=== PATIENT | male | born 1990 | race Caucasian/White ===

== ENCOUNTER 2017-07-12 10:13 | Emergency (ER) | payer BC ==
[~2017-07-12] VITALS: Ht 172.7 cm; Wt 78.9 kg
[2017-07-12 10:25] VITALS: TEMP 36.6; Ht 172.7 cm; Wt 78.9 kg
[2017-07-12] MEDS ORDERED: IBUP-1050 PO (11:13)
[2017-07-12] MEDS ORDERED: OPTIRAY 320 IV PRN (11:15)
[2017-07-12] MEDS ORDERED: SODIUM CHLORIDE 0.9% 1000ML 1,000 ML IV STA (11:21)
[2017-07-12 11:31] LABS: ISTAT CREATININE 1.6 mg/dl (0.6-1.3); ISTAT IONIZED CALCIUM 1.19 mmol/l (1.12-1.32); ISTAT POTASSIUM 3.8 mEq/L (3.3-5.0)
[2017-07-12 11:46] LABS: BASO % 0.8 %; BASO ABS # 0.03 K/uL (0-0.2); EOS % 0.5 %; EOS ABS # 0.02 K/uL (0-0.5); HEMATOCRIT 42.8 % (42-52); HEMOGLOBIN 15.1 g/dL (14.0-18.0); LYMPH % 44.9 %; LYMPH ABS # 1.67 K/uL (1.2-3.4); MEAN CELL VOLUME 92.4 fL (80-100); MEAN CORPUSCULAR HEMOGLOBIN 32.6 pg (25-34); MEAN CORPUSCULAR HGB CONC 35.3 g/dl (32-36); MEAN PLATELET VOLUME 11.3 fL (7.4-10.4); MONO % 9.7 %; MONO ABS # 0.36 K/uL (0.11-0.59); NEUT % 44.1 %; NEUT ABS # 1.64 K/uL (1.4-6.5); PLATELET COUNT 225 K/uL (130-400); RED CELL DISTRIBUTION WIDTH CV 13.1 % (11.5-14.5); RED CELL DISTRIBUTION WIDTH SD 44.3 fL (36.4-46.3); WHITE BLOOD COUNT 3.72 K/uL (4.8-10.8)
[2017-07-12 12:05] LABS: CALCIUM 9.4 mg/dl (8.5-10.1); CREATININE 1.6 mg/dl (0.60-1.40); POTASSIUM 3.7 mmol/L (3.5-5.1)
--- NOTE | 2017-07-12 12:29 | DIAGNOSTIC IMAGING REPORT ---
CT SCAN OF THE ABDOMEN AND PELVIS WITH IV CONTRAST CLINICAL HISTORY: Left upper quadrant abdominal pain. Recent injury. COMPARISON STUDY: No priors. TECHNIQUE: Following the IV administration of 118 cc of Optiray 320, CT scan of the abdomen and pelvis is performed from the lung bases to the proximal femora. Images are reviewed in the axial, sagittal, and coronal planes. IV contrast was administered without complication. A dose lowering technique was utilized adhering to the principles of ALARA. CT DOSE: 332.79 mGy.cm FINDINGS: Lung bases: The heart is normal in size and without pericardial effusion. The lung bases are clear. Liver: The contrast-enhanced liver is normal in size, contour, and attenuation. Focal fatty infiltration is noted adjacent to falciform ligament. There is no intrahepatic biliary ductal dilatation. The hepatic veins and portal veins are patent. There are at least 3 subcentimeter hepatic hypodensities. These likely represent tiny cysts or hemangiomas but are incompletely characterized. Gallbladder: Unremarkable. Spleen: Normal in size and attenuation. Pancreas: Unremarkable. Adrenal glands: Unremarkable. Kidneys: The contrast enhanced kidneys are normal in size and without hydronephrosis. The kidneys enhance symmetrically. Abdominal vasculature: The abdominal aorta is normal in course and caliber. Bowel: The small bowel and colon are normal in course and caliber. The appendix is not identified and reported surgically absent. Peritoneum: There is no intraperitoneal free air or abdominal ascites. There is a small fat-containing umbilical hernia. Lymphadenopathy: None. Pelvic viscera: The bladder, prostate, and seminal vesicles are normal as visualized. Skeletal structures: No lytic or blastic lesions are seen. IMPRESSION: 1. There is no evidence of solid organ injury in the abdomen or pelvis. 2. No acute infectious or inflammatory findings are seen in the abdomen or pelvis. 3. There are 3 subcentimeter hepatic hypodensities. These are incompletely characterized, but likely represent tiny cysts versus hemangiomas. These are of low suspicion, and if further assessment is desired a nonemergent ultrasound of the liver should be considered. Electronically signed by: Richard Matthew M.D. 07/12/2017 12:28 PM Dictated Date/Time: 07/12/2017 12:23 PM
--- NOTE | 2017-07-12 12:41 | EMERGENCY ROOM VISIT NOTE ---
History First contact with patient: 10:29 Chief Complaint: ABDOMINAL PAIN Stated Complaint: PAIN UPPER LEFT AB & BACK Nursing Triage Summary: Pt presents with pain in left flank around to left abd. Pt states, "I was playing basketball on and was hit in the back with a knee. I didn't really pay a lot of attention to it and by yesterday it was pretty significant." Denies dark urine or hematuria. History of Present Illness The patient is a 27 year old male who presents to the Emergency Room with complaints of left flank pain. The patient states that he was playing basketball yesterday and was hit in the back with a knee. He states that his pain worsened yesterday and now rates his discomfort an 8/10. The pain is located in the left flank and the left upper abdomen. He states that the left back does not hurt worse to press it, however he does have pain with pressing on the left upper abdomen. He denies any blood in his urine. He denies nausea or vomiting. He states the pain is an aching feeling and is worsened with certain movements. Review of Systems A complete 10 point review of systems was reviewed with the patient with pertinent positives and negatives as per history of present illness. All else were negative. Social History Smoking Status: Never Smoker Occupation Status: employed Current/Historical Medications Scheduled Ibuprofen (Advil), 200 MG PO UD Physical Exam Vital Signs Date Time Temp Pulse Resp B/P (MAP) Pulse Ox O2 Delivery O2 Flow Rate FiO2 07/12/17 13:02 60 18 114/64 97 07/12/17 12:05 61 18 116/58 99 Nasal Cannula 07/12/17 10:25 36.6 81 18 141/70 98 Room Air Physical Exam VITALS: Vitals are noted on the nurse's note and reviewed by myself. Vital signs stable. GENERAL: This is a 27-year-old male, in no acute distress, nondiaphoretic, well- developed well-nourished. SKIN: The skin was without rashes, erythema, edema, or bruising. HEART: Regular rate and rhythm without murmurs gallops or rubs. LUNGS: Clear to auscultation bilaterally without wheezes, rales or rhonchi. ABDOMEN: Positive bowel sounds x 4. Soft, mild tenderness to palpation in the left upper quadrant and left flank. No guarding or rebound tenderness. MUSCULOSKELETAL: No tenderness to the thoracic or lumbar spine. No tenderness of the ribs. NEURO: Patient was alert and oriented to person place and time. Medical Decision & Procedures ER Provider Diagnostic Interpretation: CT SCAN OF THE ABDOMEN AND PELVIS WITH IV CONTRAST IMPRESSION: 1. There is no evidence of solid organ injury in the abdomen or pelvis. 2. No acute infectious or inflammatory findings are seen in the abdomen or pelvis. 3. There are 3 subcentimeter hepatic hypodensities. These are incompletely characterized, but likely represent tiny cysts versus hemangiomas. These are of low suspicion, and if further assessment is desired a nonemergent ultrasound of the liver should be considered. Laboratory Results 07/12/17 11:05 Red Blood Count 4.63, Mean Corpuscular Volume 92.4, Mean Corpuscular Hemoglobin 32.6, Mean Corpuscular Hemoglobin Concent 35.3, Mean Platelet Volume 11.3, Neutrophils (%) (Auto) 44.1, Lymphocytes (%) (Auto) 44.9, Monocytes (%) (Auto) 9.7, Eosinophils (%) (Auto) 0.5, Basophils (%) (Auto) 0.8, Neutrophils # (Auto) 1.64, Lymphocytes # (Auto) 1.67, Monocytes # (Auto) 0.36, Eosinophils # (Auto) 0.02, Basophils # (Auto) 0.03 07/12/17 11:05 Test 07/12/17 10:55 07/12/17 11:05 07/12/17 11:21 Urine Color YELLOW Urine Appearance CLEAR (CLEAR) Urine pH 7.0 (4.5-7.5) Urine Specific [place] 1.021 (1.000-1.030) Urine Protein NEG (NEG) Urine Glucose (UA) NEG (NEG) Urine Ketones NEG (NEG) Urine Occult Blood NEG (NEG) Urine Nitrite NEG (NEG) Urine Bilirubin NEG (NEG) Urine Urobilinogen NEG (NEG) Urine Leukocyte Esterase NEG (NEG) White Blood Count 3.72 K/uL (4.8-10.8) Red Blood Count 4.63 M/uL (4.7-6.1) Hemoglobin 15.1 g/dL (14.0-18.0) Hematocrit 42.8 % (42-52) Mean Corpuscular Volume 92.4 fL (80-100) Mean Corpuscular Hemoglobin 32.6 pg (25-34) Mean Corpuscular Hemoglobin Concent 35.3 g/dl (32-36) Platelet Count 225 K/uL (130-400) Mean Platelet Volume 11.3 fL (7.4-10.4) Neutrophils (%) (Auto) 44.1 % Lymphocytes (%) (Auto) 44.9 % Monocytes (%) (Auto) 9.7 % Eosinophils (%) (Auto) 0.5 % Basophils (%) (Auto) 0.8 % Neutrophils # (Auto) 1.64 K/uL (1.4-6.5) Lymphocytes # (Auto) 1.67 K/uL (1.2-3.4) Monocytes # (Auto) 0.36 K/uL (0.11-0.59) Eosinophils # (Auto) 0.02 K/uL (0-0.5) Basophils # (Auto) 0.03 K/uL (0-0.2) RDW Standard Deviation 44.3 fL (36.4-46.3) RDW Coefficient of Variation 13.1 % (11.5-14.5) Immature Granulocyte % (Auto) 0.0 % Immature Granulocyte # (Auto) 0.00 K/uL (0.00-0.02) Est Creatinine Clear Calc Drug Dose 67.1 ml/min Estimated GFR () 67.4 Estimated GFR (Non- 58.2 BUN/Creatinine Ratio 10.7 (10-20) Calcium Level 9.4 mg/dl (8.5-10.1) Bedside Hemoglobin 15.0 g/dl (14.0-18.0) Bedside Hematocrit 44 % (42-52) Bedside Sodium 142 mEq/L (135-144) Bedside Potassium 3.8 mEq/L (3.3-5.0) Bedside Chloride 101 mEq/L (101-112) Bedside Total CO2 29 mEq/l (24-31) Anion Gap 17.0 mmol/L (16-25) Bedside Blood Urea Nitrogen 18 mg/dl (7-18) Bedside Creatinine 1.6 mg/dl (0.6-1.3) Bedside Glucose (other) 94 mg/dl (70-99) Bedside Ionized Calcium ([place]) 1.19 mmol/l (1.12-1.32) Medications Administered Medications (Trade) Dose Ordered Sig/Lj Route Start Time Stop Time Status Last Admin Dose Admin Sodium Chloride 1,000 ml @ 999 mls/hr Q1H1M STAT IV 07/12/17 11:21 07/12/17 12:21 DC 07/12/17 11:25 999 MLS/HR Medical Decision The differential diagnosis includes contusion, rib fracture, kidney injury, splenic laceration, among others. The patient was evaluated as above. CT of the abdomen and pelvis with IV contrast was performed and showed no evidence of solid organ injury. Urinalysis did not show any hematuria. Creatinine was found to be slightly elevated at 1.6. Patient was given IV fluids and instructed to have this rechecked by his primary care provider. The patient does admit to drinking alcohol last night and feels that he is slightly dehydrated. He was advised to return here with any worsening or new/concerning symptoms, otherwise he will take [id number] pain medication and follow-up with his PCP. He verbalized understanding of my assessment and treatment plan and was discharged home in good condition. Medication Reconcilliation Current Medication List: was personally reviewed by me Blood Pressure Screening Patient's blood pressure: Normal blood pressure Impression Primary Impression: Contusion of flank Departure Information Dispostion Home / Self-Care Condition GOOD Referrals No Doctor, Assigned (PCP) Patient Instructions My [facility] Additional Instructions For pain control, you can use the following [id number] medicines (if >12 yo): - Regular strength (325mg/tab) Tylenol (acetaminophen) 2 tabs every 4-6 hours as needed. Do not exceed 12 tablets in a 24 hour period. Avoid taking more than 4 grams (4000 mg) of Tylenol per day. This includes any other sources of acetaminophen you may take on a regular basis. - Regular strength (200 mg/tab) Advil (ibuprofen) 1-2 tabs every 4-6 hours as needed. Do not exceed a dose of 3200 mg per day. Your creatinine was found to be slightly elevated today. This should be rechecked by your primary care provider in 2-3 weeks. Rest and drink plenty of fluids. You may apply ice to any areas of pain. Return to the emergency department with worsening pain, vomiting, or any other new/concerning symptoms. Problem Qualifiers Primary Impression: Contusion of flank Encounter type: initial encounter Qualified Codes: S30.1XXA - Contusion of abdominal wall, initial encounter
[2017-07-12 13:02] VITALS: BP 114/64; PULSE 60; O2SAT 97
== END 2017-07-12 13:00 | disposition home or self-care (01) ==
LOC: C.EDB 10:15 → C.EDC 13:00
DX: S30.1XXA Contusion of abdominal wall, initial encounter (principal); W50.0XXA Accidental hit or strike by another person, initial encounter; Y93.67 Activity, basketball